=== PATIENT | female | born 1985 | race Caucasian/White ===

== ENCOUNTER 2018-01-06 18:30 | Emergency (ER) | payer OTHER ==
[2018-01-06] MEDS ORDERED: ONDANSETRON (ODT) 4 MG TAB ODT (22:27)
== END 2018-01-06 23:03 | disposition home or self-care (01) ==
LOC: FTE 18:30
DX: S80.12XA Contusion of left lower leg, initial encounter (principal); S39.012A Strain of muscle, fascia and tendon of lower back, initial encounter; V49.50XA Passenger injured in collision with unspecified motor vehicles in traffic accident, initial encounter
CPT/HCPCS: 99284; Z7502